=== PATIENT | female | born 2005 | race Caucasian/White ===

== ENCOUNTER 2023-02-03 03:26 | Emergency (ER) | payer OTHER, SELFPAY ==
[2023-02-03 03:45] VITALS: BP 123/63; PULSE 78; RESP 18; TEMP 37.1; O2SAT 99; BMI 36.0
--- NOTE | 2023-02-03 03:51 | ED_ITS ---
HPI - General Adult General Chief complaint: General Medical Stated complaint: Headache, vomiting Time Seen by Provider: 02/03/23 03:34 Source: patient Mode of arrival: ambulatory Limitations: no limitations History of Present Illness HPI narrative: Patient comes to the emergency room complaining of couple of days of a headache but was worse today. Patient has tried Motrin and Excedrin without any relief. Patient complaining of nausea and chills. Patient's mother test positive for COVID about 5 days ago. Related Data Previous Rx's Medication Instructions Recorded ketorolac 10 mg tablet 10 mg PO TID PRN pain #7 tabs 02/03/23 Allergies Allergy/AdvReac Type Severity Reaction Status Date / Time No Known Allergies Allergy Verified 02/03/23 03:43 Review of Systems Review of Systems: Constitutional : No Weight loss, No Fever, complaining of Chills, No Night Sweats, No Fatigue, No Malaise ENT/Mouth : No Hearing loss, No Ear Pain, No Nasal Congestion, No Sinus Pain, No Hoarseness, No sore throat, No Rhinorrhea, No Swallowing Difficulty Eyes: No Eye Pain, No Swelling, No Redness, No Foreign Body, No Discharge, No Vision Changes Cardiovascular : No Chest Pain, No SOB, No Dyspnea on Exertion, No Orthopnea, No Edema, No Palpitations Respiratory : No Cough, No Sputum, No Wheezing, No Smoke Exposure, No Dyspnea Gastrointestinal : No Nausea, No Vomiting, No Diarrhea, No Constipation, No abdominal Pain, No Hematochezia, No Melena Genitourinary : no irregular bleeding, No Dysuria, No Urinary Frequency, No Hematuria, No Urinary Incontinence, No Urgency, No Flank Pain, No Urinary Flow Changes, No Hesitancy Musculoskeletal : No joint pain, No Myalgias, No Joint Swelling Skin : No Skin Lesions, No rash Neuro : No Weakness, No Numbness, No Paresthesias, No Loss of Consciousness, No Dizziness, complaining of Headache Psych : No Anxiety/Panic, No Depression, No SI/HI/AH/VH, No Social Issues, Heme/Lymph: No Bruising, No Bleeding,No Lymphadenopathy Endocrine : No Polyuria, No Polydipsia, No Temperature Intolerance PMFSH Social History Social History Advance Directives: No Advance Directives Information Provided: Yes Physical Exam ED Vital Signs: Vital Signs - 24 hr 02/03/23 03:45 Temperature 98.7 F Pulse Rate 78 Respiratory Rate 18 Blood Pressure 123/63 Pulse Oximetry 99 Oxygen Delivery Method Room Air BMI result Body Mass Index 36.0 Const Other: Appearance: Alert. Oriented X3. No acute distress. Will appear Eyes: Pupils equal, round and reactive to light. No photophobia ENT: Pharynx normal. Neck: Normal inspection. Neck supple. No lymph nodes noted. No crepitus, normal range of motion, no rigidity CVS: Normal heart rate and rhythm. Pulses normal. Normal S1 and S2 Respiratory: No respiratory distress. Breath sounds normal. No Wheezing. No rales Abdomen: Soft and nontender. No rigidity. No distention. Skin: Skin warm and dry. Normal skin color. Normal skin turgor. Extremities: No lower extremity edema. No Lacerations. No Rash Neuro: Oriented X 3. No motor deficit. No sensory deficit. Moving all extremities. No slurred speech. CN 2 through 12 grossly intact Psych: calm, cooperative, normal affect Course Course Course Narrative: -patient receiving IM Toradol for the headache and p.o. Reglan. -patient well-appearing, using her phone, does not seem to have photophobia -COVID test pending. Patient's mother tested positive for COVID 5 days ago. Medications Administered Discontinued Medications Generic Name Dose Route Start Last Admin Trade Name Roderick PRN Reason Stop Dose Admin Ketorolac Tromethamine 60 mg 02/03/23 03:43 02/03/23 03:55 Ketorolac Tromethamine 60 Mg/2 Ml Vial IM 02/03/23 03:44 60 mg ONCE ONE Administration Metoclopramide HCl 10 mg 02/03/23 03:43 02/03/23 03:56 Metoclopramide Hcl 10 Mg Tablet PO 02/03/23 03:44 10 mg ONCE ONE Administration Medical Decision Making Medical Decision Making [facility] Narrative: -patient's COVID test and influenza negative -patient states that after the medication, her headache is nearly resolved. Differential Diagnosis Differential Diagnoses: The differential diagnosis associated with the presentation includes Viral syndrome, tension headache, migraine headache, cluster headaches Lab Data [facility] Lab Attestation statement: I reviewed the patient's lab results. Labs: Lab Results 02/03/23 02/03/23 Range/Units 03:58 03:58 COVID-19 (ASHLEY) Negative (Negative) COVID-19 Clin Com See Note Influenza Type A (RICHARD) Negative (Negative) Influenza Type B (RICHARD) Negative (Negative) Influenza A & B Note See Note Discharge Plan Discharge Clinical Impression: Acute viral syndrome, Headache Patient Disposition: Home, Self-Care Instructions: Acute Headache (ED) Additional Instructions: Please follow-up with your primary care physician tomorrow. If you have any worsening or new symptoms, please return to the emergency room or call 911 Prescriptions: New ketorolac 10 mg tablet 10 mg PO TID PRN (Reason: pain) Qty: 7 0RF Rx Instructions: Do not take this medication with NSAIDs Stand Alone Forms: Work/School Release
[2023-02-03] MEDS: Ketorolac Tromethamine 60 MG/2 ML VIAL IM (03:55)
[2023-02-03] MEDS: Metoclopramide HCl 10 MG TABLET PO (03:56)
[2023-02-03 04:22] LABS: COVID-19 Test Negative (Negative); IDNOW Serial# 08D9AD1C; IDNOW Serial# BCCEAD1C; Influenza A Negative (Negative); Influenza B2 Negative (Negative)
== END 2023-02-03 05:47 | disposition home or self-care (01) ==
PROVIDERS: Emergency Provider Emergency Medicine; PCP Student in an Organized Health Care Education/Training Program
DX: B34.9 Viral infection, unspecified (principal); R51.9 Headache, unspecified; Z20.822 Contact with and (suspected) exposure to COVID-19
CPT/HCPCS: 87502; 87635; 96372; 99284; J1885